=== PATIENT | male | born 1940 | race Two or more races ===

== ENCOUNTER 2018-01-24 07:17 | Outpatient (CLI) | payer OTHER | END 2018-01-24 07:29 | disposition home or self-care (01) | LOC: TOM 07:17 | DX: K56.50 Intestinal adhesions [bands], unspecified as to partial versus complete obstruction (principal); R19.8 Other specified symptoms and signs involving the digestive system and abdomen; Z80.0 Family history of malignant neoplasm of digestive organs ==